=== PATIENT | female | born 1960 | race Caucasian/White ===

== ENCOUNTER → 2017-01-06 | Outpatient (CLI) | payer BC | LOC: BMCIMAGING 08:07 | PROVIDERS: ATTEND Internal Medicine | DX: Z12.31 Encounter for screening mammogram for malignant neoplasm of breast (principal) | CPT/HCPCS: G0202 ==

== ENCOUNTER → 2018-02-04 | Outpatient (CLI) | payer BC | LOC: BMCIMAGING 08:20 | PROVIDERS: ATTEND Internal Medicine | DX: Z12.31 Encounter for screening mammogram for malignant neoplasm of breast (principal); Z80.3 Family history of malignant neoplasm of breast ==

== ENCOUNTER → 2018-05-02 | Outpatient (CLI) | payer BC | LOC: BMCIMAGING 13:10 | PROVIDERS: ATTEND Internal Medicine Endocrinology, Diabetes & Metabolism | DX: E04.2 Nontoxic multinodular goiter (principal) | CPT/HCPCS: 76536-PO ==

== ENCOUNTER → 2018-05-02 | Outpatient (CLI) | payer BC | LOC: BMCIMAGING 11:03 | PROVIDERS: ATTEND Internal Medicine | DX: E07.9 Disorder of thyroid, unspecified (principal); Z78.0 Asymptomatic menopausal state ==

== ENCOUNTER → 2018-05-13 | Outpatient (CLI) | payer BC ==
[~2018-05-13] MED LIST: LIDOCAINE 1% 300 MG/30 ML SDV ONE
== END ==
LOC: FIMAGING 08:01
PROVIDERS: ATTEND Internal Medicine Endocrinology, Diabetes & Metabolism
PROC: 07D23ZX Extraction of Left Neck Lymphatic, Percutaneous Approach, Diagnostic (ICD-10-PCS; principal; 2018-05-13)
PROC: 0GBH3ZX Excision of Right Thyroid Gland Lobe, Percutaneous Approach, Diagnostic (ICD-10-PCS; 2018-05-13)
DX: E04.2 Nontoxic multinodular goiter (principal); R59.0 Localized enlarged lymph nodes; R89.6 Abnormal cytological findings in specimens from other organs, systems and tissues
CPT/HCPCS: 88184-90; 88185-91

== ENCOUNTER → 2018-06-15 | Outpatient (CLI) | payer BC ==
[~2018-06-15] MED LIST changes: +IOPAMIDOL (ISOVUE-300) 100 ML BTL ONE; -LIDOCAINE 1% 300 MG/30 ML SDV ONE
== END ==
LOC: FIMAGING 17:10
PROVIDERS: ATTEND Otolaryngology
DX: E04.1 Nontoxic single thyroid nodule (principal)
CPT/HCPCS: Q9967

== ENCOUNTER 2018-06-28 13:16 | Day surgery (SDC) | payer BC ==
[2018-06-28] MEDS ORDERED: LR 1,000 ML IV ONE (13:26)
[2018-06-28] MEDS ORDERED: LIDO/EPI 1% **Not for Epidural 20 ML MDV ONE (13:53)
[2018-06-28] MEDS ORDERED: LIDO/EPI 1% **for epidural** 30 ML SDV ONE (13:53)
[2018-06-28] MEDS ORDERED: LIDO/EPI 2%** Not for Epidural 20 ML MDV ONE (14:28)
[2018-06-28] MEDS ORDERED: ceFAZolin 2 GM/DEXTROSE 100 ML IV ONE (14:45)
[2018-06-28] MEDS ORDERED: fentaNYL 100 MCG/2 ML INJ ONE ×2 (14:47→16:45)
[2018-06-28] MEDS ORDERED: PROPOFOL 200 MG/20 ML VIAL ONE (14:47)
[2018-06-28] MEDS ORDERED: LIDOCAINE 2% 100 MG/5 ML SYR ONE (14:48)
[2018-06-28] MEDS ORDERED: ONDANSETRON 4 MG/2 ML VIAL ONE ×2 (14:48→16:45)
--- NOTE | 2018-06-28 14:48 | PDANEPAE ---
ANE Past Medical History - Cardiovascular History Hx Hypertension: No Hx Arrhythmias: No Hx Chest Pain: No Hx Coronary Artery / Peripheral Vascular Disease: No Hx CHF / Valvular Disease: No Hx Palpitations: No - Pulmonary History Hx COPD: No Hx Asthma/Reactive Airway Disease: No Hx Recent Upper Respiratory Infection: No Hx Oxygen in Use at Home: No Hx Sleep Apnea: No Sleep Apnea Screening Result - Last Documented: Negative Pulmonary History Comment: CHRONIC COUGH RELATED TO REFLUX/ALLERGIC RHINITIS. URI 03/2018 - Neurologic History Hx Cerebrovascular Accident: No Hx Seizures: No Hx Dementia: No - Endocrine History Hx Diabetes: No Endocrine History Comment: HASHIMITOS. THYROID NODULES - Renal History Hx Renal Disorders: No - Liver History Hx Hepatic Disorders: No - Neurological & Psychiatric Hx Hx Neurological and Psychiatric Disorders: No - Cancer History Hx Cancer: No - Congenital Disorder History Hx Congenital Disorders: No - GI History Hx Gastrointestinal Disorders: Yes Gastrointestinal History Comment: GERD - Other Health History Other Health History: NEG - Chronic Pain History Chronic Pain: No - Surgical History Prior Surgeries: TONSILLECTOMY ANE Review of Systems Review of Systems: - Exercise capacity METS (RN): 4 METS ANE Patient History - Allergies Allergies/Adverse Reactions: No Known Allergies Allergy (Unverified 07/12/15 18:27) - Home Medications Home Medications: Herbals/Supplements -Info Only DAILY 06/24/18 [Last Taken 06/24/18] - NPO status NPO Since - Liquids (Date): 06/28/18 NPO Since - Liquids (Time): 11:30 NPO Since - Solids (Date): 06/28/18 NPO Since - Solids (Time): 05:10 - Smoking Hx Smoking Status: Never smoked - Family Anes Hx Family Hx Anesthesia Complications: NEG ANE Labs/Vital Signs - Vital Signs Blood Pressure: 131/61 Heart Rate: 72 Respiratory Rate: 16 O2 Sat (%): 95 Height: 177.8 cm Weight: 81.647 kg ANE Physical Exam - Airway Neck exam: FROM Mallampati Score: Class 2 - Pulmonary Pulmonary: no respiratory distress - Cardiovascular Cardiovascular: regular rate and rhythym - ASA Status ASA Status: II ANE Anesthesia Plan Anesthesia Plan: GA w LMA
--- NOTE | 2018-06-28 14:50 | PDHPUP ---
History & Physical Update H&P update statement: This history and physical update is based on an assessment of the patient which was completed after admission or registration (within 24 hours), but prior to the surgery/procedure. H&P update: H&P reviewed & patient examined, no change in patient's condition since H&P completed (CT done to identify LN location further. )
[2018-06-28] MEDS ORDERED: ROCURONIUM 50 MG/5 ML VIAL ONE (15:05)
[2018-06-28] MEDS ORDERED: NALOXONE HCL 0.4 MG/ML INJ IVP PRN (15:29)
[2018-06-28] MEDS ORDERED: HYDROCODONE/APAP 5/325 TAB PO PRN (15:29)
[2018-06-28] MEDS ORDERED: ALBUTEROL 3 ML DEYVIAL IH PRN (15:29)
[2018-06-28] MEDS ORDERED: ONDANSETRON 4 MG/2 ML VIAL IVP PRN (15:29)
[2018-06-28] MEDS ORDERED: ACETAMINOPHEN 500 MG TAB PO PRN (15:29)
[2018-06-28] MEDS ORDERED: oxyCODONE IR 5 MG TAB PO PRN (15:29)
[2018-06-28] MEDS ORDERED: GLYCOPYRROLATE 0.2 MG/1 ML VIAL ONE ×2 (15:54)
[2018-06-28] MEDS ORDERED: NEOSTIGMINE METHYLSULFATE 5 MG/5 ML SYR ONE (15:54)
--- NOTE | 2018-06-28 16:16 | POSTOPPROG ---
Post Op Note Date of Operation: 06/28/18 Surgeon: Luiza Louis Anesthesiologist: Dick Fuentes MD Anesthesia: GET(General Endotracheal) Pre-op Diagnosis: L level IV LAD Post-op Diagnosis: same Procedure: L level IV excisional biopsy Findings: [address] removed, part sent to frozen, part permanent Inf/Abcess present in the surg proc area at time of surgery?: No EBL: Minimal Complications: none apparent Bowel Protocol: N/A Clean Closure Performed: Yes Specimen(s): L Level IV LN. Frozen analysis not overtly malignant but needs to be sent for flow
--- NOTE | 2018-06-28 16:33 | POSTANESTH ---
Post Anesthetic Evaluation Cardiovascular Status: Similar to Pre-Op Cond Respiratory Status: Similar to Pre-op Cond. Level of Consciousness/Mental Status: Mildly Sleepy, Arousable Pain Control: Adequate, Prn Tx Ordered Nausea/Vomiting Control: Adequate, Prn Tx Ordered Complications Possibly Related to Anesthesia: None Noted
[2018-06-28] MEDS: fentaNYL 100 MCG/2 ML INJ IVP PRN ×2 (16:47→17:41)
[2018-06-28] MEDS ORDERED: PROMETHAZINE HCL 25 MG/ML INJ ONE (17:09)
[2018-06-28] MEDS ORDERED: PROMETHAZINE HCL 25 MG/ML INJ IVP ONE (17:13)
[2018-06-28] MEDS ORDERED: ACETAMINOPHEN 500 MG TAB ONE (20:05)
[2018-06-28 20:43] VITALS: BP 127/70
--- NOTE | 2018-07-01 05:07 | GOP ---
[f rep st] OPERATIVE REPORT DATE OF OPERATION: 06/28/2018 SURGEON: Luiza Louis MD ANESTHESIA: General. PREOPERATIVE DIAGNOSIS: Left cervical lymphadenopathy. POSTOPERATIVE DIAGNOSIS: Left cervical lymphadenopathy. PROCEDURE PERFORMED: Left cervical lymph node excisional biopsy. FINDINGS: Patient was found to have an enlarged level 4 lymph node that was just lateral to the steele tid sheath. This was removed and a small amount was sent for frozen section, and the rest was sent fo r permanent pathology. On frozen section, they did not see anything overtly malignant, but we are goi ng to submit for ESTIMATED BLOOD LOSS: Minimal. INDICATIONS: The patient is a very pleasant 58-year-old woman who has a history of a multinodular g oiter. She gets this followed routinely. On a recent ultrasound, she was noted to have an enlarged ri ght thyroid nodule as well as a left lymph node that looked somewhat suspicious, but apparently this lymph node had been there prior, although this had gotten bigger and was somewhat architecturally ana paula picious, and so an FNA was performed of both of these areas. The right thyroid nodule was benign, but the left lymph node came back with atypical cells, and she was referred to me for excisional biopsy. DESCRIPTION OF PROCEDURE: The patient was first seen in the preoperative area where informed consent was obtained. She was then brought back to the operating room where Anesthesia sedated and intubated her. She was then prepped and draped in a sterile fashion after a shoulder roll had been placed. At this point, a small 3 cm incision was made in the left side of the neck just centered over the edge o f the SCM muscle. About 5 cc of 1% lidocaine with 1:100,000 epinephrine was injected into this area a fter a universal time-out protocol was performed. Once this had sufficient time to act, a 15-blade wa s used to make an incision through the skin and subcutaneous tissues as well as the platysma. Subplat ysmal flaps were elevated superiorly and inferiorly and then Any retractor was placed for visua lization and retraction of the flap. Once this was done, the medial edge of the SCM was found, and th e fascia was divided, thereby releasing the SCM from the surrounding tissues. I gently released the S CM more posteriorly. After finding the carotid sheath, I gently dissected down into the region of lev el 4. I did find a lymph node that was somewhat enlarged by palpation and after some gentle blunt dis section this was noted to be the lymph node of concern. This was just directly below the omohyoid mus rene. I used gentle blunt dissection to remove this lymph node as a whole. It was taken off the field and measured. It was about 19 mm, which correlated with ultrasound findings. A small amount was cut o ff and sent for frozen section and then the other 3/4 of it were sent for permanent pathology. At thi s point, I turned my attention back to the wound. This was irrigated out copiously with normal saline , and bipolar cautery was used to cauterize any small bleeding vessels. I then used a 3-0 Vicryl to s uture the SCM fascia back together, and then the same suture was used to close the platysma and subcu taneous tissues. The skin was closed using a 5-0 Monocryl in a running subcuticular fashion. After th is was done, the wound was cleaned and dried and then Dermabond was placed over the incision. The pat ient was then turned back over to Anesthesia where she was awoken and extubated and taken to the PACU in stable condition. There were no complications, and she tolerated the procedure well. COMPLICATIONS: None. /[id number]/MODL
== END 2018-06-28 20:35 | disposition home or self-care (01) ==
LOC: FSGY 13:16
PROVIDERS: ATTEND Otolaryngology
PROC: 07B20ZX Excision of Left Neck Lymphatic, Open Approach, Diagnostic (ICD-10-PCS; principal; 2018-06-28 14:45)
DX: R59.9 Enlarged lymph nodes, unspecified (principal); E04.2 Nontoxic multinodular goiter; K21.9 Gastro-esophageal reflux disease without esophagitis
CPT/HCPCS: 88184-90; 88185-91; J2001; J2405; J2550; J2704; J2710; J3010